=== PATIENT | female | born 1995 | race Hispanic/Latino ===

== ENCOUNTER 2025-04-16 18:56 | Emergency (ER) | payer OTHER ==
[~2025-04-16] VITALS: Ht 162.6 cm; Wt 87.5 kg
[2025-04-16 19:00] VITALS: PULSE 71; RESP 20; TEMP 97.9
[2025-04-16] MEDS ORDERED: IBUPROFEN600 MG PO (19:48)
[2025-04-16] MEDS ORDERED: TYLENOL325 MG PO (19:48)
[2025-04-16] MEDS: IBUPROFEN 200 MG TAB PO ONE (20:15)
[2025-04-16 20:18] VITALS: BP 118/65; PULSE 71; RESP 20; TEMP 97.9; O2SAT 98
== END 2025-04-16 20:23 | disposition home or self-care (01) ==
LOC: FSED 19:20
DX: R51.9 Headache, unspecified (principal); S09.90XA Unspecified injury of head, initial encounter; M54.2 Cervicalgia; M54.9 Dorsalgia, unspecified; V53.5XXA Driver of pick-up truck or van injured in collision with car, pick-up truck or van in traffic accident, initial encounter; Y92.488 Other paved roadways as the place of occurrence of the external cause
CPT/HCPCS: 99283